=== PATIENT | female | born 1995 | race African-American/Black ===

== ENCOUNTER 2025-01-02 06:16 | Day surgery (SDC) | payer OTHER, SELFPAY ==
[2025-01-02] VITALS (9 sets, daily range): BP systolic 96–114; BP diastolic 62–78; BMI 35.2
[2025-01-02] MEDS: NORMOSOL-R/PLASMALYTE-A 1000 IV (10:25)
[2025-01-02 10:46] LABS: HCG, Urine Qualitative Screen Negative
== END 2025-01-02 14:05 | disposition home or self-care (01) ==
LOC: SDS 06:16
PROVIDERS: ATTENDING PHYSICIAN Otolaryngology; FAMILY PHYSICIAN Family Medicine
DX: J32.8 Other chronic sinusitis (principal); J34.3 Hypertrophy of nasal turbinates; J34.2 Deviated nasal septum; J33.9 Nasal polyp, unspecified
CPT/HCPCS: 31254; 30520; 30802; 31267; 88304; 88311; 81025